=== PATIENT | female | born 1990 | race African-American/Black ===

== ENCOUNTER 2022-12-02 08:35 | Emergency (ER) | payer BC, OTHER ==
[2022-12-02 08:54] VITALS: BP 150/96; PULSE 113; RESP 20; TEMP 98.9; BMI 43.9
[2022-12-02] MEDS ORDERED: ALBUTEROL SO4 HFA INHALER IH ONE ×2 (09:01→09:12)
== END 2022-12-02 10:31 | disposition home or self-care (01) ==
LOC: FER 08:35
DX: U07.1 COVID-19 (principal); J20.8 Acute bronchitis due to other specified organisms
CPT/HCPCS: 0241U-QW; 71046-TC-FY; 99284-25